=== PATIENT | female | born 1960 | race Caucasian/White ===

== ENCOUNTER 2017-04-01 11:20 | Emergency (ER) | payer OTHER ==
[~2017-04-01] VITALS: Ht 165.1 cm; Wt 75.3 kg
[~2017-04-01 11:20] MED LIST: AVONEX33 MCG SC; COUMADIN 5 MG TA5 MG PO; SIMVASTATIN40 MG PO; TRAMADOL50 MG PO; ULTRAM(MONOGRAP50 MG PO; VITAMIN D32000 I1 PO; ZANAFLEX4 MG PO
--- NOTE | 2017-04-01 13:18 | CT SCAN REPORT ---
EXAMINATION: CT HEAD WITHOUT CONTRAST CLINICAL INFORMATION: 57-year-old woman with multiple sclerosis and vertigo. COMPARISON: 04/14/2016 MRI TECHNIQUE: Contiguous axial imaging was performed from the skull base to vertex without intravenous administration of contrast. DLP: 610 mGy-cm FINDINGS: There is no evidence of acute intracranial hemorrhage or territorial infarction. No abnormal mass effect or midline shift is seen. Alcaraz to white matter differentiation is well preserved. No extra-axial fluid collections are identified. The ventricles are normal in size. Extensive nonspecific hypodensity is again seen throughout the supratentorial white matter. There is dense mineralization of the basal ganglia, dentate nuclei, and leptomeningeal spaces. The osseous structures and soft tissues are normal. The mastoid air cells and visualized portions of the paranasal sinuses are well aerated. IMPRESSION: No acute intracranial pathology.
[2017-04-01 13:38] LABS: ABSOLUTE BASOPHIL COUNT 0 /CUMM (0.0-0.2); ABSOLUTE EOSINOPHIL COUNT 0.1 /CUMM (0.0-0.7); ABSOLUTE GRANULOCYTE CT 11.5 /CUMM (1.4-6.5); ABSOLUTE LYMPH COUNT 1.8 /CUMM (1.2-3.4); ABSOLUTE MONOCYTE COUNT 0.3 /CUMM (0.10-0.60); BASOPHIL % 0 % (0.0-2.0); EOSINOPHIL % 0.4 % (0-5); GRANULOCYTE % 84.2 % (42.2-75.2); HEMATOCRIT 45.3 % (37-47); MEAN CORPUSCULAR HGB CONC 33.8 G/DL (33.0-37.0); MEAN CORPUSCULAR VOLUME 88.7 FL (81.0-99.0); MEAN PLATELET VOLUME 7.2 FL (7.4-10.4); PLATELET COUNT 438 /CUMM (130-400); RBC DISTRIBUTION WIDTH 13.9 % (11.5-14.5); RED BLOOD CELL CT 5.11 /CUMM (4.20-5.40); WHITE BLOOD CELL COUNT 13.6 /CUMM (4.8-10.8)
--- NOTE | 2017-04-01 13:42 | ED AMS/SEIZURE/WEAK/DIZZY ---
History of Present Illness General Chief Complaint: Dizziness Stated Complaint: BIBA VERTIGO Source: patient, family, old records, EMS Exam Limitations: no limitations Vital Signs & Intake/Output Vital Signs & Intake/Output Vital Signs Date Time Temp Pulse Resp B/P B/P Pulse O2 O2 Flow FiO2 Mean Ox Delivery Rate 04/01 1440 98.2 70 20 131/63 95 Room Air 04/01 1203 97.0 77 15 139/83 98 Room Air Room Air Allergies Coded Allergies: MDX - Ampicillin (AMPICILLIN) (RASH 04/01/17) MDX - Heparin (swelling 04/01/17) MDX - Latex (LATEX) (RASH 04/01/17) MDX - PCN (penicillin) (PCN (PENICILLIN)) (RASH 04/01/17) MDX - SULFA (sulfonamide) (SULFA (SULFONAMIDE)) (swelling 04/01/17) Reconcile Medications CHOLECALCIFEROL (VITAMIN D3) (Vitamin D-3) 2,000 UNIT CAPSULE 6,000 IU PO DAILY SUPPLEMENT (Reported) INTERFERON BETA-1A/ALBUMIN (Avonex Admin Pack 30 Mcg Vl) 30 MCG (1 ML) KIT 1 INJ SC WEEK MS (Reported) Meclizine HCl 25 MG TABLET 1 TAB PO TIDPRN PRN vertigo Scopolamine 1 MG/3 DAY PATCH.TD.3 1 PATCH TOP Q72 PRN dizziness Simvastatin 40 MG TABLET 1 TAB PO QPM CHOLESTEROL (Reported) Tizanidine Hydrochloride (Zanaflex) 4 MG TAB 4 MG PO DAILY PRN PAIN MODERATE TO SEVERE Tramadol HCl (Ultram) 50 MG TABLET 50 MG PO BID PRN MOD-SEVERE PAIN Triage Note: PT TO ED FOR C/C OF VERTIGO LIKE SYMPTOMS (DIZZINESS WITH ASSOCIATED NAUSEA), PT REPORTS SHE THOUGHT SHE HAD AN EAR INFECTION SO SHE TOOK AMOXICILLIN AND IS UNSURE IF SYMPTOMS ARE RELATED. Triage Nurses Notes Reviewed? yes Onset: yesterday Duration: day(s):, constant, continues in ED, getting worse Timing: recent history Injury Environment: home Severity: moderate, severe Modifying Factors: Improves With: rest. Worsens With: movement. LMP (ages 10-50): post menopausal : No Patient currently breastfeeds: No HPI: 1 day prior to admission patient complains of dizziness that has been constant worse with position associated with nausea ear pain bilateral neck pain. She denies fever chills vomiting diarrhea abdominal pain chest pain cough shortness of breath headache dysuria rash bleeding change in hearing change in vision. Past History Travel History Traveled to [place] past 21 day No Medical History Any Pertinent Medical History? see below for history Neurological: multiple sclerosis, vertigo EENT: NONE Cardiovascular: hyperlipidemia Respiratory: NONE Gastrointestinal: NONE Hepatic: NONE Renal: NONE Musculoskeletal: NONE Psychiatric: NONE Endocrine: PRE DIABETES Blood Disorders: NONE Cancer(s): LEFT BREAST History of MRSA: No History of VRE: No History of CDIFF: No Surgical History Surgical History: non-contributory Psychosocial History Who do you live with Family Services at Home None What is your primary language Macedonian Tobacco Use: Quit >30 days ago ETOH Use: denies use Illicit Drug Use: denies illicit drug use Family History Family History, If Any: FATHER (colon cancer, high cholesterol). Hx Contributory? No Review of Systems Review of Systems Constitutional: Reports: see HPI, weakness. EENTM: Reports: no symptoms. Respiratory: Reports: no symptoms. Cardiovascular: Reports: no symptoms. GI: Reports: see HPI, nausea. Genitourinary: Reports: no symptoms. Musculoskeletal: Reports: see HPI, muscle pain, neck pain. Skin: Reports: no symptoms. Neurological/Psychological: Reports: see HPI. Hematologic/Endocrine: Reports: no symptoms. Immunologic/Allergic: Reports: no symptoms. All Other Systems: Reviewed and Negative Physical Exam Physical Exam General Appearance: well developed/nourished, alert, awake, anxious, mild distress, obese Head: atraumatic, normal appearance Eyes: Bilateral: normal appearance, PERRL, EOMI, other (mild nystagmus). Ears, Nose, Throat: normal pharynx, normal ENT inspection, hearing grossly normal, moist mucus membranes Neck: normal inspection, supple, full range of motion, no midline tenderness Respiratory: normal breath sounds, chest non-tender, no respiratory distress, quiet respiration, lungs clear Cardiovascular: regular rate/rhythm, normal peripheral pulses, norml femoral pulses equa Peripheral Pulses: 4+ carotid (R), 4+ carotid (L) Gastrointestinal: normal bowel sounds, soft, non-tender, no organomegaly Back: normal inspection, normal range of motion, no vertebral tenderness Extremities: normal range of motion, no ligament instability Neurologic/Psych: no motor/sensory deficits, awake, alert, oriented x 3, normal gait, normal mood/affect, nystagmus Reflexes: 2+: bicep (R), bicep (L). Skin: intact, normal color, warm/dry Lymphatic: no anterior cervical pb Core Measures ACS in differential dx? No CVA/TIA Diagnosis No Sepsis Present: No Sepsis Focused Exam Completed? No Progress Differential Diagnosis: benign positional vertigo, CVA/stroke, dehydration, electrolyte imbalance, hypoxia Plan of Care: Orders Procedure Date/time Status RAPID VIRAL INFLUENZA A 04/01 1249 Complete TROPONIN LEVEL 04/01 1249 Complete MAGNESIUM 04/01 1249 Complete COMPREHENSIVE METABOLIC PANEL 04/01 1249 Complete CBC WITHOUT DIFFERENTIAL 04/01 1249 Complete EKG 04/01 1207 Active Current Medications Sig/Randy Start time Last Medication Dose Stop Time Status Admin Acetaminophen 975 MG ONCE ONE 04/01 1600 UNVr (Tylenol) 04/01 1601 Laboratory Tests 04/01/17 1335: Anion Gap 17 H, Estimated GFR > 60, BUN/Creatinine Ratio 17.5, Glucose 115 H, Calcium 9.7, Magnesium 1.9, Total Bilirubin 0.5, AST 28, ALT 37, Alkaline Phosphatase 108, Troponin I < 0.01, Total Protein 7.5, Albumin 4.5, Globulin 3.0 , Albumin/Globulin Ratio 1.5, CBC w Diff MAN DIFF ORDERED, RBC 5.11, MCV 88.7, MCH 30.0, MCHC 33.8, RDW 13.9, MPV 7.2 L, Gran % 84.2 H, Lymphocytes % 12.9 L , Monocytes % 2.5, Eosinophils % 0.4, Basophils % 0, Absolute Granulocytes 11.5 H, Absolute Lymphocytes 1.8, Absolute Monocytes 0.3, Absolute Eosinophils 0.1, Absolute Basophils 0, Platelet Estimate VERIFIED BY SMEAR, Normocytic RBCs VERIFIED, Normochromic RBCs VERIFIED Microbiology 04/01 1335 NASOPHARYN: Influenza Virus A & B Rapid Smear - COMP Diagnostic Imaging: Viewed by Me: CT Scan. Discussed w/RAD: CT Scan. Radiology Impression: There is no evidence of acute intracranial hemorrhage or territorial infarction. No abnormal mass effect or midline shift is seen. [place]az to white matter differentiation is well preserved. No extra-axial fluid collections are identified. The ventricles are normal in size. Extensive nonspecific hypodensity is again seen throughout the supratentorial white matter. There is dense mineralization of the basal ganglia, dentate nuclei, and leptomeningeal spaces. The osseous structures and soft tissues are normal. The mastoid air cells and visualized portions of the paranasal sinuses are well aerated. Initial ED EKG: normal axis, normal intervals, normal p-waves, normal QRS complex, normal sinus rhythm, no ST T wave changes Prior EKG: unchanged Rhythm Strip: normal sinus rhythm Departure Departure Time of Disposition: 1555 Disposition: HOME OR SELF CARE Condition: Stable Clinical Impression Primary Impression: Vertigo Referrals: Ramon MARAVILLA,Satish Fischer (PCP/Family) Departure Forms: Customer Survey General Discharge Information Prescriptions: Current Visit Scripts Meclizine HCl 1 TAB PO TIDPRN PRN vertigo #30 TAB Scopolamine 1 PATCH TOP Q72 PRN dizziness #4 PATCH
[2017-04-01] MEDS ORDERED: SCOPOLAMINE1 EAC1 TOP (15:57)
[2017-04-01] MEDS ORDERED: MECLIZINE HCL25 MG PO (15:57)
[2017-04-01 16:10] VITALS: BP 133/75
== END 2017-04-01 16:25 ==
LOC: ERH 11:20
PROVIDERS: Emergency Medicine
DX: R42 Dizziness and giddiness (principal)
CPT/HCPCS: 87804; 87804-59; 93005; 93010